=== PATIENT | female | born 1935 | race Caucasian/White ===

== ENCOUNTER 2021-07-26 16:24 | Inpatient (IN) ==
[2021-07-26] MEDS ORDERED: Ondansetron 4 mg VIAL 2 MG/ML 2 ml VIAL IV ONE (17:00)
[2021-07-26] MEDS ORDERED: Morphine 4 MG/ML VIAL (1 ml) IV ONE (17:00)
[2021-07-26 19:20] LABS: ABS Eosinophils 0.1 10^3/ul (0-0.6); ABS Lymphocytes 0.9 10^3/ul (1.0-4.8); ABS Monocytes 0.6 10^3/ul (0-0.8); Eosinophil % 0.7 %; Hematocrit 37 % (35-47); Hemoglobin 12.2 g/dL (12.0-16.0); Lymphocyte % 10.1 %; Mean Corpuscular HGB Conc 33 g/dL (31-36); Mean Corpuscular Hemoglobin 27 pg (27-31); Mean Corpuscular Volume 82 fL (80-97); Mean Platelet Volume 8.5 fL (7.4-10.4); Platelet Count 188 10^3/uL (150-450); Red Blood Count 4.52 10^6 /uL (3.70-4.87); Red Cell Distribution Width 14 % (10-15); White Blood Count 8.5 10^3/uL (3.5-10.8)
[2021-07-26 20:15] LABS: Albumin 3.9 g/dL (3.2-5.2); Albumin/Globulin Ratio 1.9 (1-3); Calcium 8.8 mg/dL (8.6-10.3); Globulin 2.1 g/dL (2-4); Total Bilirubin 0.5 mg/dL (0.2-1.0); eGFR CKD-EPI 71.1 (>60)
[2021-07-26 20:18] LABS: Potassium 4.5 mmol/L (3.5-5.0)
[2021-07-26] MEDS ORDERED: Ondansetron 4 mg VIAL 2 MG/ML 2 ml VIAL ONE (21:36)
[2021-07-26] MEDS: Ondansetron 4 mg VIAL 2 MG/ML 2 ml VIAL IV PRN (21:42)
[2021-07-26] MEDS ORDERED: Dextrose 50% Syringe 50 ml 25 GM/50 ML SYRINGE IV PUSH PRN (22:23)
[2021-07-26] MEDS ORDERED: Heparin 5000 UNITS/ML 1 mL VIAL SUBCUT ONE (23:42)
[2021-07-27] MEDS: Morphine 2 MG/ML SYRINGE IV PRN ×3 (00:55→19:45)
[2021-07-27 04:10] LABS: Urine Appearance Clear; Urine Bilirubin Negative (Negative); Urine Blood Negative (Negative); Urine Color Yellow; Urine Glucose 3+(>=500 mg/dL) (Negative); Urine Ketones 1+ (Negative); Urine Nitrite Negative (Negative); Urine Protein Negative (Negative); Urine Specific Gravity 1.023 (1.002-1.030); Urine Urobilinogen Negative (Negative)
[2021-07-27] MEDS ORDERED: Morphine 2 MG/ML SYRINGE IV ONE (06:00)
[2021-07-27] MEDS: Cholecalciferol (VIT D3) 1,000 unit TAB PO SCH (08:33)
[2021-07-27] MEDS: Ondansetron 4 mg VIAL 2 MG/ML 2 ml VIAL IV PRN ×2 (08:37→19:45)
[2021-07-27] MEDS: NS 0.9% 1000 ml BAG 1,000 ML IV SCH (12:51)
[2021-07-27] MEDS ORDERED: Bupivacaine 0.25% SDV PF 10 ML VIAL INJ ONE ×2 (12:52→13:49)
[2021-07-27] MEDS ORDERED: Bupivacaine 0.5% W/EPI SDV 10 ML VIAL INJ ONE (13:11)
[2021-07-27 13:58] LABS: ABS Eosinophils 0.1 10^3/ul (0-0.6); ABS Lymphocytes 0.8 10^3/ul (1.0-4.8); ABS Monocytes 0.7 10^3/ul (0-0.8); ABS Neutrophils 5.3 10^3/ul (1.5-7.7); Hematocrit 39 % (35-47); Hemoglobin 13.2 g/dL (12.0-16.0); Lymphocyte % 11.2 %; Mean Corpuscular HGB Conc 33 g/dL (31-36); Mean Corpuscular Hemoglobin 27 pg (27-31); Mean Corpuscular Volume 82 fL (80-97); Mean Platelet Volume 8.3 fL (7.4-10.4); Platelet Count 177 10^3/uL (150-450); Red Blood Count 4.82 10^6 /uL (3.70-4.87); Red Cell Distribution Width 14 % (10-15); White Blood Count 6.9 10^3/uL (3.5-10.8)
[2021-07-27 14:10] LABS: Activated Partial Thrombo Time 28.9 seconds (26.0-38.0); INR 1.11 (0.86-1.15)
[2021-07-27 14:28] LABS: Calcium 9.1 mg/dL (8.6-10.3); Potassium 3.9 mmol/L (3.5-5.0); eGFR CKD-EPI 70.1 (>60)
[2021-07-27] MEDS ORDERED: ceFAZolin 2 GM in NS PREMIX 2 GM/100 ML BAG IVPB ONE (17:17)
[2021-07-28] MEDS: NS 0.9% 1000 ml BAG 1,000 ML IV SCH (01:24)
[2021-07-28 06:29] LABS: Hematocrit 38 % (35-47); Hemoglobin 12.5 g/dL (12.0-16.0); Mean Corpuscular HGB Conc 33 g/dL (31-36); Mean Corpuscular Hemoglobin 27 pg (27-31); Mean Corpuscular Volume 82 fL (80-97); Mean Platelet Volume 8.1 fL (7.4-10.4); Platelet Count 173 10^3/uL (150-450); Red Blood Count 4.61 10^6 /uL (3.70-4.87); Red Cell Distribution Width 14 % (10-15)
[2021-07-28 07:01] LABS: Calcium 8.7 mg/dL (8.6-10.3); Magnesium 1.4 mg/dL (1.9-2.7); Potassium 4.1 mmol/L (3.5-5.0); eGFR CKD-EPI 86.9 (>60)
[2021-07-28] MEDS ORDERED: Magnesium Sulf 4 GM/100 ML IV 4,000 MG/100 ML BAG IVPB ONE (08:00)
[2021-07-28] MEDS ORDERED: Insulin GLARGINE 100 un/ml 10 ml VIAL SUBCUT SCH ×2 (08:00→09:00)
[2021-07-28] MEDS: Cholecalciferol (VIT D3) 1,000 unit TAB PO SCH (08:34)
[2021-07-28] MEDS: Morphine 2 MG/ML SYRINGE IV PRN ×2 (08:34→22:31)
[2021-07-28] MEDS: Ondansetron 4 mg VIAL 2 MG/ML 2 ml VIAL IV PRN (08:48)
[2021-07-28] MEDS ORDERED: fentaNYL 100 mcg/2 ml 50 MCG/ML VIAL IV PRN (15:02)
[2021-07-28] MEDS ORDERED: Ondansetron 4 mg VIAL 2 MG/ML 2 ml VIAL IV PRN (15:02)
[2021-07-28] MEDS ORDERED: Naloxone 0.4 mg VIAL 0.4 mg/ml 1 ml VIAL IV PRN (15:02)
[2021-07-28] MEDS ORDERED: oxyCODONE/Acetamin 5/325 mg TAB PO PRN (15:02)
[2021-07-28] MEDS ORDERED: ceFAZolin 2 GM in NS PREMIX 2 GM/100 ML BAG IVPB ONE (15:08)
[2021-07-28] MEDS ORDERED: Midazolam 2 mg/2 ml VIAL 1 mg/ml 2 ml VIAL (2 mg) ONE (15:14)
[2021-07-28] MEDS ORDERED: fentaNYL 100 mcg/2 ml 50 MCG/ML VIAL ONE (15:14)
[2021-07-28] MEDS ORDERED: Ketamine HCL 50 mg/ml 10 ml VIAL (500 MG) ONE (15:14)
[2021-07-28] MEDS ORDERED: Bupivacaine 0.25% SDV PF 10 ML VIAL INJ ONE (15:59)
[2021-07-28] MEDS ORDERED: Phenylephrine IV 10 MG/ML 1 ml VIAL ONE (16:52)
[2021-07-28] MEDS ORDERED: BUPIVACAINE **LIPOSOME/PF 13.3 MG/ML (266MG/ 20ML) VIAL (RESTRICTED) INFIL ONE (17:00)
[2021-07-29] MEDS ORDERED: Morphine 2 MG/ML SYRINGE IV ONE (00:10)
[2021-07-29] MEDS: ceFAZolin 1 GM X 3 DOSES POST-OP Q8H (AddVan) IVPB SCH ×3 (00:33→16:48)
[2021-07-29 06:19] LABS: Hematocrit 32 % (35-47); Hemoglobin 10.7 g/dL (12.0-16.0); Mean Corpuscular HGB Conc 33 g/dL (31-36); Mean Corpuscular Hemoglobin 27 pg (27-31); Mean Corpuscular Volume 81 fL (80-97); Mean Platelet Volume 7.8 fL (7.4-10.4); Platelet Count 155 10^3/uL (150-450); Red Blood Count 3.94 10^6 /uL (3.70-4.87); Red Cell Distribution Width 14 % (10-15); White Blood Count 7.6 10^3/uL (3.5-10.8)
[2021-07-29 07:05] LABS: Calcium 8.3 mg/dL (8.6-10.3); Magnesium 1.9 mg/dL (1.9-2.7); Potassium 4.1 mmol/L (3.5-5.0); eGFR CKD-EPI 70.1 (>60)
[2021-07-29] MEDS: Cholecalciferol (VIT D3) 1,000 unit TAB PO SCH (08:36)
[2021-07-29] MEDS ORDERED: Insulin GLARGINE 100 un/ml 10 ml VIAL SUBCUT SCH ×2 (09:00→21:00)
[2021-07-29 10:38] LABS: Glucose Confirmatory 410 mg/dL (70-100)
[2021-07-29] MEDS: Enoxaparin 40 MG/0.4 ML SYR SUBCUT SCH (11:57)
[2021-07-29 12:34] LABS: Glucose Confirmatory 411 mg/dL (70-100)
[2021-07-29] MEDS ORDERED: Dextrose 50% Syringe 50 ml 25 GM/50 ML SYRINGE IV PUSH PRN (13:27)
[2021-07-29 15:49] LABS: Glucose Confirmatory 461 mg/dL (70-100)
[2021-07-29] MEDS: Magnesium Hydroxide LIQ 30 ML UDC PO PRN (17:09)
[2021-07-29] MEDS: Morphine 2 MG/ML SYRINGE IV PRN (21:27)
[2021-07-30] MEDS: Morphine 2 MG/ML SYRINGE IV PRN (05:46)
[2021-07-30 06:20] LABS: Hematocrit 30 % (35-47); Mean Corpuscular HGB Conc 34 g/dL (31-36); Mean Corpuscular Hemoglobin 27 pg (27-31); Mean Corpuscular Volume 81 fL (80-97); Mean Platelet Volume 8.1 fL (7.4-10.4); Platelet Count 170 10^3/uL (150-450); Red Blood Count 3.66 10^6 /uL (3.70-4.87); Red Cell Distribution Width 14 % (10-15); White Blood Count 7.3 10^3/uL (3.5-10.8)
[2021-07-30 07:14] LABS: Calcium 8.2 mg/dL (8.6-10.3); Potassium 4.7 mmol/L (3.5-5.0); eGFR CKD-EPI 63.5 (>60)
[2021-07-30] MEDS: Cholecalciferol (VIT D3) 1,000 unit TAB PO SCH (08:51)
[2021-07-30] MEDS: Insulin GLARGINE 100 un/ml 10 ml VIAL SUBCUT SCH ×2 (08:54→21:44)
[2021-07-30] MEDS: Enoxaparin 40 MG/0.4 ML SYR SUBCUT SCH (12:29)
[2021-07-30 12:48] LABS: Glucose Confirmatory 409 mg/dL (70-100)
[2021-07-31] MEDS: Insulin GLARGINE 100 un/ml 10 ml VIAL SUBCUT SCH ×2 (09:05→21:11)
[2021-07-31] MEDS: Cholecalciferol (VIT D3) 1,000 unit TAB PO SCH (09:06)
[2021-07-31] MEDS: Enoxaparin 40 MG/0.4 ML SYR SUBCUT SCH (12:26)
[2021-07-31] MEDS: Meloxicam 7.5 mg TAB (NF) PO SCH (12:37)
[2021-07-31] MEDS ORDERED: MELOXICAM 15 MG PO SCH (13:00)
[2021-07-31] MEDS: Magnesium Hydroxide LIQ 30 ML UDC PO PRN (14:18)
[2021-07-31] MEDS: Senna TAB 8.6 mg TAB PO PRN (22:18)
[2021-08-01] MEDS ORDERED: Insulin GLARGINE 100 un/ml 10 ml VIAL SUBCUT SCH ×2 (08:00→09:00)
[2021-08-01] MEDS: Meloxicam 7.5 mg TAB (NF) PO SCH (09:14)
[2021-08-01] MEDS: Cholecalciferol (VIT D3) 1,000 unit TAB PO SCH (09:14)
[2021-08-01] MEDS: Enoxaparin 40 MG/0.4 ML SYR SUBCUT SCH (13:03)
[2021-08-01] MEDS: Insulin GLARGINE 100 un/ml 10 ml VIAL SUBCUT SCH (23:03)
[2021-08-02] MEDS: Cholecalciferol (VIT D3) 1,000 unit TAB PO SCH (09:14)
[2021-08-02] MEDS: Meloxicam 7.5 mg TAB (NF) PO SCH (09:14)
[2021-08-02] MEDS: Insulin GLARGINE 100 un/ml 10 ml VIAL SUBCUT SCH ×2 (09:17→20:57)
[2021-08-02] MEDS: Enoxaparin 40 MG/0.4 ML SYR SUBCUT SCH (13:16)
[2021-08-02 14:01] LABS: Vitamin D Total 25(OH) 29.7 ng/mL (20-50)
[2021-08-03] MEDS: Insulin GLARGINE 100 un/ml 10 ml VIAL SUBCUT SCH ×2 (08:36→21:24)
[2021-08-03] MEDS: Cholecalciferol (VIT D3) 1,000 unit TAB PO SCH (08:38)
[2021-08-03] MEDS: Meloxicam 7.5 mg TAB (NF) PO SCH (08:38)
[2021-08-03] MEDS: Enoxaparin 40 MG/0.4 ML SYR SUBCUT SCH (13:39)
[2021-08-03] MEDS: Senna TAB 8.6 mg TAB PO PRN (21:15)
[2021-08-03] MEDS: Magnesium Hydroxide LIQ 30 ML UDC PO PRN (21:15)
[2021-08-04] MEDS: Insulin GLARGINE 100 un/ml 10 ml VIAL SUBCUT SCH ×2 (08:52→21:14)
[2021-08-04] MEDS: Cholecalciferol (VIT D3) 1,000 unit TAB PO SCH (08:54)
[2021-08-04] MEDS: Meloxicam 7.5 mg TAB (NF) PO SCH (08:58)
[2021-08-04] MEDS: Enoxaparin 40 MG/0.4 ML SYR SUBCUT SCH (12:54)
[2021-08-05 07:55] VITALS: BP 125/59
[2021-08-05] MEDS: Meloxicam 7.5 mg TAB (NF) PO SCH (08:18)
[2021-08-05] MEDS: Cholecalciferol (VIT D3) 1,000 unit TAB PO SCH (08:18)
[2021-08-05] MEDS: Magnesium Hydroxide LIQ 30 ML UDC PO PRN (08:23)
[2021-08-05] MEDS: Insulin GLARGINE 100 un/ml 10 ml VIAL SUBCUT SCH (09:31)
[2021-08-05 09:55] LABS: Rapid COVID-19 Molecular Undetected (Undetected)
== END 2021-08-05 11:36 | DRG 522 ==
LOC: ED 16:24 → EDHOLD 22:15 → SUATTDRO 22:15 → SSU 07-27 07:41
PROVIDERS: ADMIT Internal Medicine; ATTEND Internal Medicine

== ENCOUNTER 2021-10-26 14:34 | Inpatient (IN) ==
[2021-10-26 14:59] LABS: ABS Eosinophils 0.1 10^3/ul (0-0.6); ABS Lymphocytes 1.2 10^3/ul (1.0-4.8); ABS Monocytes 0.4 10^3/ul (0-0.8); Eosinophil % 2.4 %; Hematocrit 38 % (35-47); Hemoglobin 12.6 g/dL (12.0-16.0); Lymphocyte % 25.1 %; Mean Corpuscular HGB Conc 33 g/dL (31-36); Mean Corpuscular Hemoglobin 27 pg (27-31); Mean Corpuscular Volume 80 fL (80-97); Mean Platelet Volume 8.3 fL (7.4-10.4); Platelet Count 184 10^3/uL (150-450); Red Cell Distribution Width 15 % (10-15); White Blood Count 4.8 10^3/uL (3.5-10.8)
[2021-10-26 15:02] LABS: INR 0.99 (0.89-1.11)
[2021-10-26] MEDS ORDERED: NS 0.9% 1000 ml BAG 1,000 ML IV ONE (16:05)
[2021-10-26 16:07] LABS: Albumin 4.3 g/dL (3.2-5.2); Calcium 9.5 mg/dL (8.6-10.3); Globulin 2.1 g/dL (2-4); Potassium 4.4 mmol/L (3.5-5.0); Total Bilirubin 0.7 mg/dL (0.2-1.0); Total Protein 6.4 g/dL (6.4-8.9); eGFR CKD-EPI 70.7 (>60)
[2021-10-26 16:30] LABS: High Sensitivity Troponin 1 Hr 1165 pg/mL (<15)
[2021-10-26 16:46] LABS: Magnesium 1.2 mg/dL (1.9-2.7)
[2021-10-26] MEDS ORDERED: Nitro 2% OINT (Nitroglycerin) 1 INCH/PAK TOPICAL ONE (17:22)
[2021-10-26] MEDS ORDERED: Magnesium Sulfate IV 3 GM in NS 0.9% 100 ml BAG 100 ML IVPB ONE (17:23)
[2021-10-26] MEDS: Iodixanol (CONTRAST) 320 MG/ML 100 ML SDV IV ONE (17:51)
[2021-10-26] MEDS ORDERED: Heparin DRIP 25,000 UNITS BAG 25,000 UNITS/500 ML BAG IV SCH (19:15)
[2021-10-26 19:52] LABS: ABS Eosinophils 0.1 10^3/ul (0-0.6); ABS Lymphocytes 1.4 10^3/ul (1.0-4.8); ABS Monocytes 0.5 10^3/ul (0-0.8); Eosinophil % 2.6 %; Hematocrit 37 % (35-47); Lymphocyte % 28.4 %; Mean Corpuscular HGB Conc 32 g/dL (31-36); Mean Corpuscular Hemoglobin 26 pg (27-31); Mean Corpuscular Volume 80 fL (80-97); Mean Platelet Volume 8.3 fL (7.4-10.4); Nucleated Red Blood Cells % 0.2; Platelet Count 199 10^3/uL (150-450); Red Blood Count 4.68 10^6 /uL (3.70-4.87); Red Cell Distribution Width 15 % (10-15); White Blood Count 5.1 10^3/uL (3.5-10.8)
[2021-10-26] MEDS ORDERED: Heparin 5000 UNITS/ML 1 mL VIAL IV SCH (20:00)
[2021-10-26 20:29] LABS: eGFR CKD-EPI 77.5 (>60)
[2021-10-26] MEDS ORDERED: Dextrose 50% Syringe 50 ml 25 GM/50 ML SYRINGE IV PUSH PRN (20:35)
[2021-10-26] MEDS ORDERED: nitroGLYCERIN DRIP 25,000 MCG/250 ML BTL IV SCH (22:00)
[2021-10-26] MEDS: Insulin GLARGINE 100 un/ml 10 ml VIAL SUBCUT SCH (22:08)
[2021-10-26 23:48] LABS: HDL Cholesterol 48.3 mg/dL
[2021-10-27 05:43] LABS: ABS Eosinophils 0.1 10^3/ul (0-0.6); ABS Lymphocytes 1.5 10^3/ul (1.0-4.8); ABS Monocytes 0.5 10^3/ul (0-0.8); ABS Neutrophils 2.7 10^3/ul (1.5-7.7); Hematocrit 33 % (35-47); Mean Corpuscular HGB Conc 34 g/dL (31-36); Mean Corpuscular Hemoglobin 27 pg (27-31); Mean Corpuscular Volume 79 fL (80-97); Mean Platelet Volume 8.1 fL (7.4-10.4); Platelet Count 177 10^3/uL (150-450); Red Blood Count 4.13 10^6 /uL (3.70-4.87); Red Cell Distribution Width 15 % (10-15); White Blood Count 4.9 10^3/uL (3.5-10.8)
[2021-10-27 06:44] LABS: Calcium 8.7 mg/dL (8.6-10.3); Magnesium 1.7 mg/dL (1.9-2.7)
[2021-10-27] MEDS ORDERED: Magnesium Sulfate 2 gm BAG 2 GM/50 ML BAG IVPB ONE (07:22)
[2021-10-27] MEDS: Insulin GLARGINE 100 un/ml 10 ml VIAL SUBCUT SCH ×2 (07:27→21:04)
[2021-10-27] MEDS: Iodixanol (CONTRAST) 320 MG/ML 100 ML SDV IV ONE (07:27)
[2021-10-27] MEDS: Cholecalciferol (VIT D3) 1,000 unit TAB PO SCH (07:56)
[2021-10-27] MEDS ORDERED: Magnesium Sulfate IV 3 GM in NS 0.9% 100 ml BAG 100 ML IVPB ONE (08:35)
[2021-10-27] MEDS: Aspirin EC 81 mg TAB.EC (enteric coated) PO SCH (08:38)
[2021-10-27 08:40] LABS: Phosphorus 4.1 mg/dL (2.5-5.0); eGFR CKD-EPI 82.8 (>60)
[2021-10-27] MEDS ORDERED: Midazolam 5 mg/5 ml VIAL 1 mg/ml 5 ml VIAL (5 mg) ONE (09:29)
[2021-10-27] MEDS ORDERED: Heparin 1,000 UNIT/ML 10 ml (10,000 UNITS) CATHLAB/DIALYSIS ONE (09:29)
[2021-10-27] MEDS ORDERED: Lidocaine 1% MPF 5 ML VIAL ONE (09:29)
[2021-10-27] MEDS ORDERED: fentaNYL 100 mcg/2 ml 50 MCG/ML VIAL ONE (09:29)
[2021-10-27] MEDS ORDERED: niCARdipine 0.1MG/ML IVPREMIX 20 MG/200 ML BAG IV ONE (09:30)
[2021-10-27] MEDS ORDERED: nitroGLYCERIN DRIP 25,000 MCG/250 ML BTL ONE (09:30)
[2021-10-27] MEDS ORDERED: Iohexol 350 (CONTRAST) 100 ML PAK IV ONE ×2 (09:30→10:33)
[2021-10-27] MEDS ORDERED: Heparin 2 UNITS/ML 1000 mls 2,000 ML IV ONE (09:32)
[2021-10-28 05:45] LABS: Calcium 9.2 mg/dL (8.6-10.3); Magnesium 1.7 mg/dL (1.9-2.7); Potassium 4.4 mmol/L (3.5-5.0); eGFR CKD-EPI 70.7 (>60)
[2021-10-28] MEDS ORDERED: Magnesium Sulfate IV 3 GM in NS 0.9% 100 ml BAG 100 ML IVPB ONE (06:20)
[2021-10-28] MEDS: Insulin GLARGINE 100 un/ml 10 ml VIAL SUBCUT SCH (08:36)
[2021-10-28] MEDS: Aspirin EC 81 mg TAB.EC (enteric coated) PO SCH (08:36)
[2021-10-28] MEDS: Cholecalciferol (VIT D3) 1,000 unit TAB PO SCH (08:36)
[2021-10-28] MEDS ORDERED: Isosorbide Mononit ER 30mg TAB PO SCH (09:00)
[2021-10-28] MEDS ORDERED: CMCS:Ranolazine 500 mg TAB ER (NF) PO SCH (09:00)
[2021-10-28 15:17] VITALS: BP 100/68
== END 2021-10-28 15:00 | disposition home or self-care (01) | DRG 247 ==
LOC: ED 14:34 → EDHOLD 19:54 → ICU 20:59
PROVIDERS: ADMIT Internal Medicine Critical Care Medicine; ATTEND Internal Medicine Critical Care Medicine

== ENCOUNTER 2023-11-27 12:59 | Observation (INO) ==
[2023-11-27 16:12] LABS: ABS Basophils 0.1 10^3/uL (0.0-0.1); ABS Eosinophils 0.2 10^3/uL (0.0-0.5); ABS Lymphocytes 1.6 10^3/uL (1.0-4.8); ABS Monocytes 0.6 10^3/uL (0.0-0.9); ABS Neutrophils 3.9 10^3/uL (1.5-7.6); Eosinophil % 3.9 %; Hematocrit 34.5 % (35-45); Hemoglobin 11.8 g/dL (11.5-14.3); Lymphocyte % 24.5 %; Mean Corpuscular Hgb Conc 34.1 g/dL (31-36); Mean Corpuscular Volume 82.1 fL (80-97); Mean Platelet Volume 7.8 fL (7.5-11.2); Platelet Count 200 10^3/uL (150-450); Red Cell Distribution Width 15.8 % (12-17); White Blood Count 6.4 10^3/uL (3.8-11.8)
[2023-11-27 16:28] LABS: Urine Appearance Turbid; Urine Bilirubin Negative (Negative); Urine Blood Negative (Negative); Urine Color Light-Yellow; Urine Glucose Negative (Negative); Urine Ketones Negative (Negative); Urine Nitrite Negative (Negative); Urine Protein Trace (Negative); Urine Specific Gravity 1.018 (1.002-1.030); Urine Urobilinogen Negative (Negative); Urine pH 6.5 (5.0-8.0)
[2023-11-27 17:06] LABS: Albumin/Globulin Ratio 1.9 (1-3); Calcium 9.1 mg/dL (8.6-10.3); Creatinine, Serum 1.12 mg/dL (0.51-0.95); Globulin 2.1 g/dL (2-4); Potassium 5.4 mmol/L (3.5-5.0); Total Bilirubin 0.5 mg/dL (0.2-1.0); Total Protein 6.1 g/dL (6.4-8.9); eGFR CKD-EPI 47.3 (>60)
[2023-11-27 17:14] LABS: Urine Bacteria Absent /HPF (Absent); Urine Red Blood Cell 1+(3-5/hpf) /HPF (0-Trace); Urine Squamous Epithelial Cell Present /HPF (Absent); Urine White Blood Cell 2+(11-20/hpf) /HPF (0-Trace)
[2023-11-27 17:35] LABS: High Sensitivity Troponin 1 Hr 28 pg/mL (<15)
[2023-11-27] MEDS: Iodixanol (CONTRAST) 320 MG/ML 100 ML SDV IV ONE (18:32)
[2023-11-27 21:33] LABS: HDL Cholesterol 34.4 mg/dL
[2023-11-27 21:48] LABS: TSH Ultra Thyroid Stim Horm 3.27 mcIU/mL (0.34-5.60)
[2023-11-27] MEDS ORDERED: Sulfur Hexaflouride MICROSPHR 25 MG VIAL IV PRN (22:37)
[2023-11-27] MEDS: Enoxaparin 40 MG/0.4 ML SYR SUBCUT SCH (23:50)
[2023-11-28 06:22] LABS: ABS Eosinophils 0.2 10^3/uL (0.0-0.5); ABS Lymphocytes 1.1 10^3/uL (1.0-4.8); ABS Monocytes 0.5 10^3/uL (0.0-0.9); ABS Neutrophils 2.8 10^3/uL (1.5-7.6); Eosinophil % 4.9 %; Hematocrit 34.2 % (35-45); Hemoglobin 11.2 g/dL (11.5-14.3); Mean Corpuscular Hemoglobin 26.8 pg (27-33); Mean Corpuscular Hgb Conc 32.7 g/dL (31-36); Mean Platelet Volume 7.5 fL (7.5-11.2); Platelet Count 178 10^3/uL (150-450); Red Blood Count 4.17 10^6/uL (3.63-4.92); Red Cell Distribution Width 15.5 % (12-17); White Blood Count 4.6 10^3/uL (3.8-11.8)
[2023-11-28 07:55] LABS: Calcium 9.2 mg/dL (8.6-10.3); Creatinine, Serum 1.04 mg/dL (0.51-0.95); eGFR CKD-EPI 51.7 (>60)
[2023-11-28] MEDS: Insulin GLARGINE 100 un/ml 10 ml VIAL SUBCUT SCH (08:59)
[2023-11-28] MEDS: Aspirin EC 81 mg TAB.EC (enteric coated) PO SCH (11:27)
[2023-11-29 06:19] LABS: Calcium 9.4 mg/dL (8.6-10.3); Creatinine, Serum 1.05 mg/dL (0.51-0.95); Potassium 4.8 mmol/L (3.5-5.0); eGFR CKD-EPI 51.1 (>60)
[2023-11-29 16:40] VITALS: BP 127/58
== END 2023-11-29 17:15 | disposition home or self-care (01) ==
LOC: EDHOLD 12:59 → ED 12:59 → SUATTDRO 21:00 → MEDTELE 11-28 11:57
PROVIDERS: ADMIT Internal Medicine; ATTEND Hospitalist

== ENCOUNTER 2024-04-04 18:55 | Observation (INO) ==
[2024-04-04 19:39] LABS: ABS Eosinophils 0.2 10^3/uL (0.0-0.5); ABS Lymphocytes 1.3 10^3/uL (1.0-4.8); ABS Monocytes 0.5 10^3/uL (0.0-0.9); ABS Neutrophils 2.6 10^3/uL (1.5-7.6); ABS Nucleated RBC 0.01 10^3/ul; Eosinophil % 3.2 %; Hemoglobin 12.3 g/dL (11.5-14.3); Lymphocyte % 28.6 %; Mean Corpuscular Hemoglobin 26.2 pg (27-33); Mean Corpuscular Hgb Conc 33.1 g/dL (31-36); Mean Platelet Volume 8.3 fL (7.5-11.2); Nucleated Red Blood Cells % 0.1 %/100WBC (0.0-0.8); Platelet Count 188 10^3/uL (150-450); Red Blood Count 4.69 10^6/uL (3.63-4.92); Red Cell Distribution Width 15.6 % (12-17); White Blood Count 4.7 10^3/uL (3.8-11.8)
[2024-04-04] MEDS: Iodixanol 320 (CONTRAST) 100 ML SDV IV ONE (19:50)
[2024-04-04 19:54] LABS: Activated Partial Thrombo Time 29.8 seconds (26.0-38.0); INR 1.01 (0.85-1.14)
[2024-04-04 20:22] LABS: ALT 15 U/L (7-52); Albumin 4.1 g/dL (3.5-5.7); Albumin/Globulin Ratio 1.8 (1-3); Alkaline Phosphatase 113 U/L (35-149); Anion Gap 8 mmol/L (2-16); Blood Urea Nitrogen 20 mg/dL (6-24); CO2 Carbon Dioxide 23 mmol/L (22-32); Calcium 9.4 mg/dL (8.6-10.3); Chloride 106 mmol/L (101-111); Cholesterol 145 mg/dL; Globulin 2.3 g/dL (2-4); Glucose 182 mg/dL (70-100); HDL Cholesterol 40.6 mg/dL; LDL Cholesterol 68 mg/dL; Sodium 137 mmol/L (135-145); Total Bilirubin 0.7 mg/dL (0.2-1.0); Total Protein 6.4 g/dL (6.4-8.9); Triglycerides 183 mg/dL; eGFR CKD-EPI 61.5 (>60)
[2024-04-04 22:58] LABS: Urine Appearance Clear; Urine Bilirubin Negative (Negative); Urine Blood Negative (Negative); Urine Color Light-Yellow; Urine Glucose Negative (Negative); Urine Ketones Negative (Negative); Urine Nitrite Negative (Negative); Urine Protein Trace (Negative); Urine Specific Gravity 1.049 (1.002-1.030); Urine Urobilinogen Negative (Negative); Urine pH 6.5 (5.0-8.0)
[2024-04-04 23:33] LABS: Urine Bacteria Absent /HPF (Absent); Urine Red Blood Cell Absent /HPF (0-Trace); Urine Squamous Epithelial Cell Present /HPF (Absent); Urine White Blood Cell 3+(>20/hpf) /HPF (0-Trace)
[2024-04-04] MEDS: Aspirin EC 81 mg TAB.EC (enteric coated) PO SCH (23:58)
[2024-04-05] MEDS ORDERED: Sulfur Hexaflouride MICROSPHR 25 MG VIAL IV PRN (00:34)
[2024-04-05] MEDS ORDERED: Dextrose 50% Syringe 50 ml 25 GM/50 ML SYRINGE IV PUSH PRN ×2 (00:34→13:01)
[2024-04-05 00:41] LABS: Direct Bilirubin Redraw 0.1 mg/dL (0.1-0.5); Potassium Redraw 3.9 mmol/L (3.5-5.0)
[2024-04-05 06:54] LABS: ABS Eosinophils 0.1 10^3/uL (0.0-0.5); ABS Lymphocytes 1.2 10^3/uL (1.0-4.8); ABS Monocytes 0.5 10^3/uL (0.0-0.9); ABS Neutrophils 1.9 10^3/uL (1.5-7.6); ABS Nucleated RBC 0.01 10^3/ul; Eosinophil % 3.9 %; Hematocrit 33.4 % (35-45); Hemoglobin 11.5 g/dL (11.5-14.3); Lymphocyte % 31.9 %; Mean Corpuscular Hemoglobin 26.9 pg (27-33); Mean Corpuscular Hgb Conc 34.3 g/dL (31-36); Mean Corpuscular Volume 78.4 fL (80-97); Mean Platelet Volume 8.1 fL (7.5-11.2); Nucleated Red Blood Cells % 0.2 %/100WBC (0.0-0.8); Platelet Count 157 10^3/uL (150-450); Red Blood Count 4.26 10^6/uL (3.63-4.92); Red Cell Distribution Width 15.1 % (12-17); White Blood Count 3.7 10^3/uL (3.8-11.8)
[2024-04-05 07:21] LABS: Calcium 8.8 mg/dL (8.6-10.3); Creatinine, Serum 0.83 mg/dL (0.51-0.95); Magnesium 1.8 mg/dL (1.9-2.7); Potassium 4.2 mmol/L (3.5-5.0); eGFR CKD-EPI 67.8 (>60)
[2024-04-05] MEDS: Enoxaparin 40 MG/0.4 ML SYR SUBCUT SCH (09:37)
[2024-04-05 17:23] VITALS: BP 138/80
== END 2024-04-05 12:22 | disposition home or self-care (01) ==
LOC: ED 18:55 → EDHOLD 18:55 → MEDTELE 04-05 11:11
PROVIDERS: ADMIT Student in an Organized Health Care Education/Training Program; ATTEND Hospitalist